=== PATIENT | male | born 1980 | race Caucasian/White ===

== ENCOUNTER 2016-10-16 23:01 | Observation (INO) | payer BC ==
[2016-10-16] MEDS ORDERED: Diphtheria,Pertussis(Acell),Tetanus Vaccine 0.5 ML Syringe IM ONE (23:13)
--- NOTE | 2016-10-16 23:19 | EDM.PDOC ---
ED HPI GENERAL MEDICAL PROBLEM - General Chief Complaint: Drug or Alcohol Abuse Stated Complaint: INTOXICATED Time Seen by Provider: 10/16/16 23:08 - History of Present Illness INITIAL COMMENTS - FREE TEXT/NARRATIVE: HISTORY AND PHYSICAL: History of present illness: Patient a 36-year-old white male with a history of long-standing alcohol abuse and is reportedly been drinking heavily for the past several weeks he was at home with parents intoxicated per their history had a fall from standing position hitting his head he is brought here via them in private vehicle arrival patient is abrasion contusion to his forehead he is nonverbal he will respond to physical stimuli and does open his eyes spontaneously he is moving all extremities he was immediately placed in a cervical collar in place in a bed IV O2 monitor was initiated Review of systems: As per history of present illness and below otherwise all systems reviewed and negative. Past medical history: As per history of present illness and as reviewed below otherwise noncontributory. Surgical history: As per history of present illness and as reviewed below otherwise noncontributory. Social history: No reported history of drug or alcohol abuse. Family history: As per history of present illness and as reviewed below otherwise noncontributory. Physical exam: HEENT: Abrasion with forehead hematoma noted, normocephalic, pupils reactive, negative for conjunctival pallor or scleral icterus, mucous membranes moist, throat clear, neck supple, nontender, trachea midline. Lungs: Clear to auscultation, breath sounds equal bilaterally, chest nontender. Heart: S1S2, regular, negative for clicks, rubs, or JVD. Abdomen: Soft, nondistended, nontender. Negative for masses or hepatosplenomegaly. Negative for costovertebral tenderness. Pelvis: Stable nontender. Genitourinary: Deferred. Rectal: Deferred. Extremities: Atraumatic, negative for cords or calf pain. Neurovascular unremarkable. Neuro: Somnolent moves all extremities inconsistently follows commands markedly limited nonfocal exam Diagnostics: CBC CMP PT/INR troponin EKG chest x-ray CT brain CT C-spine UA urine drug screen EtOH Therapeutics: IV O2 monitor tetanus updated Impression: #1 observation status post fall #2 ethanol abuse with acute intoxication #3 closed head injury #4 abrasion contusion with hematoma right forehead Definitive disposition and diagnosis as appropriate pending reevaluation and review of above. - Related Data Allergies Allergy/AdvReac Type Severity Reaction Status Date / Time No Known Allergies Allergy Verified 10/16/16 23:46 Home Meds: Home Meds . [Unable to Verify Home Med List] 10/16/16 [History] Past Medical History - Past Health History Medical/Surgical History: Denies Medical/Surgical History Social & Family History - Tobacco Use Smoking Status *Q: Current Status Unknown - Recreational Drug Use Recreational Drug Use: No ED ROS GENERAL - Review of Systems Review Of Systems: ROS reveals no pertinent complaints other than HPI. ED EXAM, GENERAL - Physical Exam Exam: See Below (See dictation) Course - Vital Signs Last Recorded V/S: Last Vital Signs Temp 36.3 C 10/16/16 23:11 Pulse 108 H 10/16/16 23:11 Resp 20 10/16/16 23:11 BP Pulse Ox 91 L 10/16/16 23:11 - Orders/Labs/Meds Orders: Active Orders 24 hr Category Date Time Status Admission Status [Patient Status] [ADT] Stat ADT 10/17/16 00:10 Active Cardiac Monitoring [RC] . DIRECTED Care 10/16/16 23:10 Active EKG Documentation Completion [RC] STAT Care 10/16/16 23:09 Active Vaccines to be Administered [RC] PER UNIT ROUTINE Care 10/16/16 23:13 Active Cervical Spine wo Cont [CT] Stat Exams 10/16/16 23:11 Taken Head wo Cont [CT] Stat Exams 10/16/16 23:12 Taken Sodium Chloride 0.9% [Normal Saline] 1,000 ml Med 10/16/16 23:15 Active IV ASDIRECTED Medication Orders Sodium Chloride (Normal Saline) 1,000 mls @ 125 mls/hr IV ASDIRECTED KAVYA Labs: Laboratory Tests 10/16/16 10/16/16 10/16/16 Range/Units 23:18 23:18 23:18 WBC 2.25 L (4.0-11.0) K/uL RBC 4.72 (4.50-5.90) M/uL Hgb 15.3 (13.0-17.0) g/dL Hct 42.3 (38.0-50.0) % MCV 89.6 (80.0-98.0) fL MCH 32.4 H (27.0-32.0) pg MCHC 36.2 (31.0-37.0) g/dL RDW Std Deviation 40.3 (28.0-62.0) fl RDW Coeff of Mj 13 (11.0-15.0) % Plt Count 62 L (150-400) K/uL MPV 9.10 (7.40-12.00) fL Neut % (Auto) 49.4 (48.0-80.0) % Lymph % (Auto) 34.2 (16.0-40.0) % Nolan % (Auto) 14.7 (0.0-15.0) % Eos % (Auto) 1.3 (0.0-7.0) % Baso % (Auto) 0.4 (0.0-1.5) % Neut # (Auto) 1.1 L (1.4-5.7) K/uL Lymph # (Auto) 0.8 (0.6-2.4) K/uL Nolan # (Auto) 0.3 (0.0-0.8) K/uL Eos # (Auto) 0.0 (0.0-0.7) K/uL Baso # (Auto) 0.0 (0.0-0.1) K/uL Nucleated RBC % 0.0 /100WBC Nucleated RBCs # 0 K/uL INR 0.93 (0.86-1.11) Sodium 140 (136-146) mmol/L Potassium 4.0 (3.5-5.1) mmol/L Chloride 100 (98-110) mmol/L Carbon Dioxide 24 (21-31) mmol/L BUN 10 (6.0-23.0) mg/dL Creatinine 0.8 (0.6-1.5) mg/dL Est Cr Clr Drug Dosing 138.57 mL/min Estimated GFR (MDRD) > 60.0 ml/min Glucose 133 H (60-110) mg/dL Calcium 9.0 (8.8-10.8) mg/dL Total Bilirubin 0.9 (0.1-1.5) mg/dL AST 318 H (5-40) IU/L ALT 284 H (8-54) IU/L Alkaline Phosphatase 93 (40-150) Troponin I (0.0-0.29) NG/ML Total Protein 8.0 (6.0-8.0) g/dL Albumin 4.9 (3.5-5.0) g/dL Globulin 3.1 (2.0-3.5) g/dL Albumin/Globulin Ratio 1.6 (1.3-2.8) Urine Opiates Screen (NEGATIVE) Ur Oxycodone Screen (NEGATIVE) Urine Methadone Screen (NEGATIVE) Ur Barbiturates Screen (NEGATIVE) Ur Phencyclidine Scrn (NEGATIVE) Ur Amphetamine Screen (NEGATIVE) U Methamphetamines Scrn (NEGATIVE) U Benzodiazepines Scrn (NEGATIVE) U Cocaine Metab Screen (NEGATIVE) U Marijuana (THC) Screen (NEGATIVE) Ethyl Alcohol 499.6 mg/dL 10/16/16 10/17/16 Range/Units 23:18 00:15 WBC (4.0-11.0) K/uL RBC (4.50-5.90) M/uL Hgb (13.0-17.0) g/dL Hct (38.0-50.0) % MCV (80.0-98.0) fL MCH (27.0-32.0) pg MCHC (31.0-37.0) g/dL RDW Std Deviation (28.0-62.0) fl RDW Coeff of Mj (11.0-15.0) % Plt Count (150-400) K/uL MPV (7.40-12.00) fL Neut % (Auto) (48.0-80.0) % Lymph % (Auto) (16.0-40.0) % Nolan % (Auto) (0.0-15.0) % Eos % (Auto) (0.0-7.0) % Baso % (Auto) (0.0-1.5) % Neut # (Auto) (1.4-5.7) K/uL Lymph # (Auto) (0.6-2.4) K/uL Nolan # (Auto) (0.0-0.8) K/uL Eos # (Auto) (0.0-0.7) K/uL Baso # (Auto) (0.0-0.1) K/uL Nucleated RBC % /100WBC Nucleated RBCs # K/uL INR (0.86-1.11) Sodium (136-146) mmol/L Potassium (3.5-5.1) mmol/L Chloride (98-110) mmol/L Carbon Dioxide (21-31) mmol/L BUN (6.0-23.0) mg/dL Creatinine (0.6-1.5) mg/dL Est Cr Clr Drug Dosing mL/min Estimated GFR (MDRD) ml/min Glucose (60-110) mg/dL Calcium (8.8-10.8) mg/dL Total Bilirubin (0.1-1.5) mg/dL AST (5-40) IU/L ALT (8-54) IU/L Alkaline Phosphatase (40-150) Troponin I < 0.10 (0.0-0.29) NG/ML Total Protein (6.0-8.0) g/dL Albumin (3.5-5.0) g/dL Globulin (2.0-3.5) g/dL Albumin/Globulin Ratio (1.3-2.8) Urine Opiates Screen NEGATIVE (NEGATIVE) Ur Oxycodone Screen NEGATIVE (NEGATIVE) Urine Methadone Screen NEGATIVE (NEGATIVE) Ur Barbiturates Screen NEGATIVE (NEGATIVE) Ur Phencyclidine Scrn NEGATIVE (NEGATIVE) Ur Amphetamine Screen NEGATIVE (NEGATIVE) U Methamphetamines Scrn NEGATIVE (NEGATIVE) U Benzodiazepines Scrn NEGATIVE (NEGATIVE) U Cocaine Metab Screen NEGATIVE (NEGATIVE) U Marijuana (THC) Screen NEGATIVE (NEGATIVE) Ethyl Alcohol mg/dL Meds: Medications Generic Name Dose Route Start Last Admin Trade Name Freq PRN Reason Stop Dose Admin Sodium Chloride 1,000 mls @ 125 mls/hr 10/16/16 23:15 Normal Saline IV ASDIRECTED KAVYA Discontinued Medications Generic Name Dose Route Start Last Admin Trade Name Freq PRN Reason Stop Dose Admin Diphtheria/Tetanus/Acell Pertussis 0.5 ml 10/16/16 23:13 Adacel IM 10/16/16 23:14 .ONCE ONE Departure - Departure Time of Disposition: 00:52 Disposition: Refer to Observation Condition: Serious Clinical Impression: Alcohol abuse, Head trauma, Fall - Discharge Information Forms: ED Department Discharge - My Orders Last 24 Hours: My Active Orders 10/16/16 23:09 EKG Documentation Completion [RC] STAT 10/16/16 23:10 Cardiac Monitoring [RC] . DIRECTED 10/16/16 23:11 Cervical Spine wo Cont [CT] Stat 10/16/16 23:12 Head wo Cont [CT] Stat 10/16/16 23:13 Vaccines to be Administered [RC] PER UNIT ROUTINE 10/16/16 23:15 Sodium Chloride 0.9% [Normal Saline] 1,000 ml IV ASDIRECTED 10/17/16 00:10 Admission Status [Patient Status] [ADT] Stat - Assessment/Plan Last 24 Hours: My Active Orders 10/16/16 23:09 EKG Documentation Completion [RC] STAT 10/16/16 23:10 Cardiac Monitoring [RC] . DIRECTED 10/16/16 23:11 Cervical Spine wo Cont [CT] Stat 10/16/16 23:12 Head wo Cont [CT] Stat 10/16/16 23:13 Vaccines to be Administered [RC] PER UNIT ROUTINE 10/16/16 23:15 Sodium Chloride 0.9% [Normal Saline] 1,000 ml IV ASDIRECTED 10/17/16 00:10 Admission Status [Patient Status] [ADT] Stat
[2016-10-16 23:48] LABS: CHLORIDE,CL 100 mmol/L (98-110); SODIUM,NA 140 mmol/L (136-146)
[2016-10-16] MEDS: Sodium Chloride 0.9% 1,000 ML IV SCH (23:55)
[2016-10-17] MEDS ORDERED: Morphine 10 MG/ML Syringe ONE (02:04)
[2016-10-17] MEDS ORDERED: Thiamine 100 MG in Sodium Chloride 0.9% 50 ML IV STA ×2 (03:34→04:23)
[2016-10-17] MEDS ORDERED: Pantoprazole 40 MG in Sodium Chloride 0.9% 10 ML IVPUSH SCH (04:15)
[2016-10-17] MEDS: MVI, Adult with Vitamin K 10 ML, Thiamine 100 MG, Folic Acid 1 MG in Sodium Chloride 0.... IV SCH ×4 (04:30)
[2016-10-17 05:14] LABS: CHLORIDE,CL 103 mmol/L (98-110); SODIUM,NA 142 mmol/L (136-146)
--- NOTE | 2016-10-17 06:48 | PCM.HP ---
H&P History of Present Illness - General Admit Problem/Dx: Admission Diagnosis/Problem Admission Diagnosis/Problem "Fall on same level from slipping, tripping or stumbling " - Related Data Allergies/Adverse Reactions: Allergies Allergy/AdvReac Type Severity Reaction Status Date / Time No Known Allergies Allergy Verified 10/16/16 23:46 Home Medications: Home Meds . 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; he also had knee surgery) Other Musculoskeletal Surgeries/Procedures:: hip surgery Social & Family History - Family History Family Medical History: Noncontributory - Tobacco Use Smoking Status *Q: Never Smoker Second Hand Smoke Exposure: No - Caffeine Use Caffeine Use: Reports: Energy Drinks Caffeine Use Comment: "once in a while" - Alcohol Use Days Per Week of Alcohol Use: 7 Number of Drinks Per Day: 5 Total Drinks Per Week: 35 - Recreational Drug Use Recreational Drug Use: No Exam - Vital Signs Vital Signs: Last Vital Signs Temp 97.8 F 10/17/16 02:00 Pulse 102 H 10/17/16 02:00 Resp 20 10/17/16 02:00 BP 118/72 10/17/16 02:00 Pulse Ox 99 10/17/16 02:00 Weight: 78.5 kg - Patient Data Lab Results Last 24 hrs: Laboratory Results - last 24 hr 10/17/16 10/17/16 10/17/16 Range/Units 00:15 04:38 04:38 WBC 3.22 L (4.0-11.0) K/uL RBC 4.22 L (4.50-5.90) M/uL Hgb 13.6 (13.0-17.0) g/dL Hct 37.9 L (38.0-50.0) % MCV 89.8 (80.0-98.0) fL MCH 32.2 H (27.0-32.0) pg MCHC 35.9 (31.0-37.0) g/dL RDW Std Deviation 40.6 (28.0-62.0) fl RDW Coeff of Mj 13 (11.0-15.0) % Plt Count 54 L (150-400) K/uL MPV 8.90 (7.40-12.00) fL Neutrophils % (Manual) 59 (48.0-80.0) % Band Neutrophils % 1 % Lymphocytes % (Manual) 36 (16.0-40.0) % Monocytes % (Manual) 3 (0.0-15.0) % Eosinophils % (Manual) 1 (0.0-7.0) % Nucleated RBC % 0.0 /100WBC Absolute Seg Neuts 1.9 Band Neutrophils # 0 Lymphocytes # (Manual) 1.2 Monocytes # (Manual) 0.1 Eosinophils # (Manual) 0 Sodium 142 (136-146) mmol/L Potassium 4.0 (3.5-5.1) mmol/L Chloride 103 (98-110) mmol/L Carbon Dioxide 22 (21-31) mmol/L BUN 10 (6.0-23.0) mg/dL Creatinine 0.8 (0.6-1.5) mg/dL Est Cr Clr Drug Dosing 138.01 mL/min Estimated GFR (MDRD) > 60.0 ml/min Glucose 105 (60-110) mg/dL Calcium 8.1 L (8.8-10.8) mg/dL Magnesium 1.6 (1.5-2.3) mEq/L Total Bilirubin 0.9 (0.1-1.5) mg/dL AST 298 H (5-40) IU/L ALT 253 H (8-54) IU/L Alkaline Phosphatase 88 (40-150) Ammonia (14-68) UG/DL Total Protein 7.0 (6.0-8.0) g/dL Albumin 4.5 (3.5-5.0) g/dL Globulin 2.5 (2.0-3.5) g/dL Albumin/Globulin Ratio 1.8 (1.3-2.8) Urine Opiates Screen NEGATIVE (NEGATIVE) Ur Oxycodone Screen NEGATIVE (NEGATIVE) Urine Methadone Screen NEGATIVE (NEGATIVE) Ur Barbiturates Screen NEGATIVE (NEGATIVE) Ur Phencyclidine Scrn NEGATIVE (NEGATIVE) Ur Amphetamine Screen NEGATIVE (NEGATIVE) U Methamphetamines Scrn NEGATIVE (NEGATIVE) U Benzodiazepines Scrn NEGATIVE (NEGATIVE) U Cocaine Metab Screen NEGATIVE (NEGATIVE) U Marijuana (THC) Screen NEGATIVE (NEGATIVE) 10/17/16 Range/Units 04:38 WBC (4.0-11.0) K/uL RBC (4.50-5.90) M/uL Hgb (13.0-17.0) g/dL Hct (38.0-50.0) % MCV (80.0-98.0) fL MCH (27.0-32.0) pg MCHC (31.0-37.0) g/dL RDW Std Deviation (28.0-62.0) fl RDW Coeff of Mj (11.0-15.0) % Plt Count (150-400) K/uL MPV (7.40-12.00) fL Neutrophils % (Manual) (48.0-80.0) % Band Neutrophils % % Lymphocytes % (Manual) (16.0-40.0) % Monocytes % (Manual) (0.0-15.0) % Eosinophils % (Manual) (0.0-7.0) % Nucleated RBC % /100WBC Absolute Seg Neuts Band Neutrophils # Lymphocytes # (Manual) Monocytes # (Manual) Eosinophils # (Manual) Sodium (136-146) mmol/L Potassium (3.5-5.1) mmol/L Chloride (98-110) mmol/L Carbon Dioxide (21-31) mmol/L BUN (6.0-23.0) mg/dL Creatinine (0.6-1.5) mg/dL Est Cr Clr Drug Dosing mL/min Estimated GFR (MDRD) ml/min Glucose (60-110) mg/dL Calcium (8.8-10.8) mg/dL Magnesium (1.5-2.3) mEq/L Total Bilirubin (0.1-1.5) mg/dL AST (5-40) IU/L ALT (8-54) IU/L Alkaline Phosphatase (40-150) Ammonia 48 (14-68) UG/DL Total Protein (6.0-8.0) g/dL Albumin (3.5-5.0) g/dL Globulin (2.0-3.5) g/dL Albumin/Globulin Ratio (1.3-2.8) Urine Opiates Screen (NEGATIVE) Ur Oxycodone Screen (NEGATIVE) Urine Methadone Screen (NEGATIVE) Ur Barbiturates Screen (NEGATIVE) Ur Phencyclidine Scrn (NEGATIVE) Ur Amphetamine Screen (NEGATIVE) U Methamphetamines Scrn (NEGATIVE) U Benzodiazepines Scrn (NEGATIVE) U Cocaine Metab Screen (NEGATIVE) U Marijuana (THC) Screen (NEGATIVE) Result Diagrams: 10/17/16 04:38 10/17/16 04:38 *Q Meaningful Use (ADM) - VTE *Q VTE Criteria *Q: - Stroke *Q Stroke Criteria *Q: - AMI *Q AMI Criteria *Q: Orders Last 24hrs: Active Orders 24 hr Category Date Time Status Admission Status [Patient Status] [ADT] Routine ADT 10/17/16 00:30 Active Notify Provider Consults [RC] ASDIRECTED Care 10/17/16 04:33 Active Consult to Physician [CONS] Routine Cons 10/17/16 04:31 Active Regular Diet [DIET] Diet 10/17/16 Breakfast Active MVI, Adult with Vitamin K [Infuvite Adult] 10 ml Med 10/17/16 03:45 Active Thiamine [Vitamin B-1] 100 mg Folic Acid 1 mg Sodium Chloride 0.9% [Normal Saline] 1,000 ml IV Q24H Pantoprazole [ProTONIX IV] 40 mg Med 10/17/16 04:15 Active Sodium Chloride 0.9% [Normal Saline] 10 ml IVPUSH Q24H Medication Orders Sodium Chloride (Normal Saline) 1,000 mls @ 125 mls/hr IV ASDIRECTED [facility] Last Admin: 10/16/16 23:55 Dose: 125 mls/hr Multivitamins/Minerals 10 ml/Thiamine HCl 100 mg/ Folic Acid 1 mg/ Sodium Chloride 1,011.2 mls @ 125 mls/hr IV Q24H [facility] Last Admin: 10/17/16 04:30 Dose: 125 mls/hr Pantoprazole Sodium 40 mg/ (Sodium Chloride) 10 mls @ 300 mls/hr IVPUSH Q24H [facility] Last Admin: 10/17/16 04:43 Dose: 300 mls/hr
--- NOTE | 2016-10-17 06:56 | PCM.CONS ---
H&P History of Present Illness - General Date of Service: 10/17/16 Admit Problem/Dx: Admission Diagnosis/Problem Admission Diagnosis/Problem "Fall on same level from slipping, tripping or stumbling " - History of Present Illness Initial Comments - Free Text/Narative: He was seen in the ED for a ground level fall while intoxicated. He states that he mainly is a binge drinker and that before this current alcohol binge, he had not had any alcohol for over one year. - Related Data Allergies/Adverse Reactions: Allergies Allergy/AdvReac Type Severity Reaction Status Date / Time No Known Allergies Allergy Verified 10/16/16 23:46 Home Medications: Home Meds . [Unable to Verify Home Med List] 10/16/16 [History] Past Medical History - Past Health History Medical/Surgical History: Denies Medical/Surgical History HEENT History: Reports: None Cardiovascular History: Denies: Afib, Arrhythmia, CAD, Cardiomyopathy, Heart Failure, Heart Murmur, Hypertension, [place], Pacemaker Respiratory History: Denies: Asthma, COPD, Cystic Fibrosis, PE, Pulmonary Fibrosis Gastrointestinal History: Denies: Cirrhosis Genitourinary History: Denies: Chronic Renal Insuffiency Musculoskeletal History: Reports: None Psychiatric History: Reports: Depression. Denies: Dementia, Psych Hospitalization(s), Psychosis, Schizophrenia Endocrine/Metabolic History: Denies: Diabetes, Type I, Diabetes, Type II, Hyperparathyroidism Hematologic History: Denies: Anticoagulation Therapy, Bleeding Disorder Oncologic (Cancer) History: Reports: None - Infectious Disease History Infectious Disease History: Reports: Chicken Pox - Past Surgical History Other Musculoskeletal Surgeries/Procedures:: hip surgery Social & Family History - Family History Family Medical History: Noncontributory - Tobacco Use Smoking Status *Q: Never Smoker Second Hand Smoke Exposure: No - Caffeine Use Caffeine Use: Reports: Energy Drinks Caffeine Use Comment: "once in a while" - Alcohol Use Alcohol Use Comment: He told me that he has not had a drink for over one year and that he occasionally "binge" drinks. - Recreational Drug Use Recreational Drug Use: No H&P Review of Systems - Review of Systems: Review Of Systems: See Below General: Denies: Fever, Chills Pulmonary: Denies: Shortness of Breath, Wheezing Cardiovascular: Denies: Chest Pain, Palpitations Gastrointestinal: Reports: Abdominal Pain (epigastric). Denies: Black Stool, Bloody Stool, Melena, Nausea Genitourinary: Denies: Dysuria, Frequency Musculoskeletal: Denies: Neck Pain (swelling and abrasion mid forehead; denies broken teeth; denies LOC) Exam - Exam Exam: See Below - Vital Signs Vital Signs: Last Vital Signs Temp 97.8 F 10/17/16 02:00 Pulse 102 H 10/17/16 02:00 Resp 20 10/17/16 02:00 BP 118/72 10/17/16 02:00 Pulse Ox 99 10/17/16 02:00 Weight: 78.5 kg - Exam General: Alert, Oriented, Cooperative, Other (marked swelling over mid forehead with abrasion) HEENT: EOMI Neck: Supple Lungs: Clear to Auscultation, Normal Respiratory Effort Cardiovascular: Regular Rate, Regular Rhythm Abdomen: Soft, Tenderness (mild epigastric tenderness) (Male) Exam: Deferred Extremities: No: Cyanosis, Edema Neurological: Cranial Nerves Intact Neuro Extensive - Motor, Sensory, Reflexes: No: Facial palsy (L), Facial Palsy ( R), Hemeplagia (R), Hemeplagia (L) - Patient Data Lab Results Last 24 hrs: Laboratory Results - last 24 hr 10/17/16 10/17/16 10/17/16 Range/Units 00:15 04:38 04:38 WBC 3.22 L (4.0-11.0) K/uL RBC 4.22 L (4.50-5.90) M/uL Hgb 13.6 (13.0-17.0) g/dL Hct 37.9 L (38.0-50.0) % MCV 89.8 (80.0-98.0) fL MCH 32.2 H (27.0-32.0) pg MCHC 35.9 (31.0-37.0) g/dL RDW Std Deviation 40.6 (28.0-62.0) fl RDW Coeff of Mj 13 (11.0-15.0) % Plt Count 54 L (150-400) K/uL MPV 8.90 (7.40-12.00) fL Neutrophils % (Manual) 59 (48.0-80.0) % Band Neutrophils % 1 % Lymphocytes % (Manual) 36 (16.0-40.0) % Monocytes % (Manual) 3 (0.0-15.0) % Eosinophils % (Manual) 1 (0.0-7.0) % Nucleated RBC % 0.0 /100WBC Absolute Seg Neuts 1.9 Band Neutrophils # 0 Lymphocytes # (Manual) 1.2 Monocytes # (Manual) 0.1 Eosinophils # (Manual) 0 Sodium 142 (136-146) mmol/L Potassium 4.0 (3.5-5.1) mmol/L Chloride 103 (98-110) mmol/L Carbon Dioxide 22 (21-31) mmol/L BUN 10 (6.0-23.0) mg/dL Creatinine 0.8 (0.6-1.5) mg/dL Est Cr Clr Drug Dosing 138.01 mL/min Estimated GFR (MDRD) > 60.0 ml/min Glucose 105 (60-110) mg/dL Calcium 8.1 L (8.8-10.8) mg/dL Magnesium 1.6 (1.5-2.3) mEq/L Total Bilirubin 0.9 (0.1-1.5) mg/dL AST 298 H (5-40) IU/L ALT 253 H (8-54) IU/L Alkaline Phosphatase 88 (40-150) Ammonia (14-68) UG/DL Total Protein 7.0 (6.0-8.0) g/dL Albumin 4.5 (3.5-5.0) g/dL Globulin 2.5 (2.0-3.5) g/dL Albumin/Globulin Ratio 1.8 (1.3-2.8) Urine Opiates Screen NEGATIVE (NEGATIVE) Ur Oxycodone Screen NEGATIVE (NEGATIVE) Urine Methadone Screen NEGATIVE (NEGATIVE) Ur Barbiturates Screen NEGATIVE (NEGATIVE) Ur Phencyclidine Scrn NEGATIVE (NEGATIVE) Ur Amphetamine Screen NEGATIVE (NEGATIVE) U Methamphetamines Scrn NEGATIVE (NEGATIVE) U Benzodiazepines Scrn NEGATIVE (NEGATIVE) U Cocaine Metab Screen NEGATIVE (NEGATIVE) U Marijuana (THC) Screen NEGATIVE (NEGATIVE) 10/17/16 Range/Units 04:38 WBC (4.0-11.0) K/uL RBC (4.50-5.90) M/uL Hgb (13.0-17.0) g/dL Hct (38.0-50.0) % MCV (80.0-98.0) fL MCH (27.0-32.0) pg MCHC (31.0-37.0) g/dL RDW Std Deviation (28.0-62.0) fl RDW Coeff of Mj (11.0-15.0) % Plt Count (150-400) K/uL MPV (7.40-12.00) fL Neutrophils % (Manual) (48.0-80.0) % Band Neutrophils % % Lymphocytes % (Manual) (16.0-40.0) % Monocytes % (Manual) (0.0-15.0) % Eosinophils % (Manual) (0.0-7.0) % Nucleated RBC % /100WBC Absolute Seg Neuts Band Neutrophils # Lymphocytes # (Manual) Monocytes # (Manual) Eosinophils # (Manual) Sodium (136-146) mmol/L Potassium (3.5-5.1) mmol/L Chloride (98-110) mmol/L Carbon Dioxide (21-31) mmol/L BUN (6.0-23.0) mg/dL Creatinine (0.6-1.5) mg/dL Est Cr Clr Drug Dosing mL/min Estimated GFR (MDRD) ml/min Glucose (60-110) mg/dL Calcium (8.8-10.8) mg/dL Magnesium (1.5-2.3) mEq/L Total Bilirubin (0.1-1.5) mg/dL AST (5-40) IU/L ALT (8-54) IU/L Alkaline Phosphatase (40-150) Ammonia 48 (14-68) UG/DL Total Protein (6.0-8.0) g/dL Albumin (3.5-5.0) g/dL Globulin (2.0-3.5) g/dL Albumin/Globulin Ratio (1.3-2.8) Urine Opiates Screen (NEGATIVE) Ur Oxycodone Screen (NEGATIVE) Urine Methadone Screen (NEGATIVE) Ur Barbiturates Screen (NEGATIVE) Ur Phencyclidine Scrn (NEGATIVE) Ur Amphetamine Screen (NEGATIVE) U Methamphetamines Scrn (NEGATIVE) U Benzodiazepines Scrn (NEGATIVE) U Cocaine Metab Screen (NEGATIVE) U Marijuana (THC) Screen (NEGATIVE) Result Diagrams: 10/17/16 04:38 10/17/16 04:38 Consult PN Assessment/Plan Procedures: Procedures BX BREAST 1ST LESION US IMAG (07/28/15) EMERGENCY DEPT VISIT (08/10/15) (1) Elevated liver enzymes SNOMED Code(s): 359356571, 433726028 Code(s): R74.8 - ABNORMAL LEVELS OF OTHER SERUM ENZYMES Current Visit: Yes (2) Epigastric pain SNOMED Code(s): 68128498 Code(s): R10.13 - EPIGASTRIC PAIN Current Visit: Yes (3) Alcohol abuse SNOMED Code(s): 53816229 Code(s): F10.10 - ALCOHOL ABUSE, UNCOMPLICATED Current Visit: Yes (4) Fall SNOMED Code(s): 4609138, 072334350 Code(s): W19.XXXA - UNSPECIFIED FALL, INITIAL ENCOUNTER Current Visit: Yes Problem List Initiated/Reviewed/Updated: Yes My Orders last 24 hours: My Active Orders 10/17/16 03:45 MVI, Adult with Vitamin K [Infuvite Adult] 10 ml Thiamine [Vitamin B-1] 100 mg Folic Acid 1 mg Sodium Chloride 0.9% [Normal Saline] 1,000 ml IV Q24H 10/17/16 Breakfast Regular Diet [DIET] Plan: monitor for alcohol withdrawl banana bag already ordered abdominal u/s recheck LFT tomorrow. MD Nadir
[2016-10-17] MEDS ORDERED: Ondansetron 4 MG Tab.DIS PO PRN (06:58)
[2016-10-17] MEDS ORDERED: Temazepam 15 MG Cap PO PRN (06:58)
--- NOTE | 2016-10-17 11:01 | CT ---
EXAM DATE: 10/17/16 PATIENT'S AGE: 36 Patient: GERALDO ZELAYA Facility: [place], [place] Site . Site : 1980 Study: CT Head WO CONT [id number]/27/2017 12:12:07 AM Ordering Physician: Paul Tolentino Final Report: INDICATIONS: Fall. TECHNIQUE: CT head without contrast. COMPARISON: None FINDINGS: No mass effect or midline shift. No hydrocephalus. No CT evidence of acute hemorrhage or infarction. No abnormal extra-axial fluid collection. Bone windows show no acute abnormality. Visualized paranasal sinuses and orbits are unremarkable. Soft tissue swelling right frontal scalp. IMPRESSION: No acute intracranial abnormality. Soft tissue swelling right frontal scalp. Dictated by Jacob Garcia MD @ 10/17/2016 12:30:23 AM Dictated by: Jacob Garcia MD @ 10/17/2016 00:30:38 (Electronic Signature) Report Signed by Proxy. [facility]ITAL[facility]as[facility]
--- NOTE | 2016-10-17 11:02 | CT ---
EXAM DATE: 10/17/16 PATIENT'S AGE: 36 Patient: GERALDO ZELAYA Facility: [place], [place] Site . Site : 1980 Study: CT Spine Cervical [id number]/27/2017 12:15:45 AM Ordering Physician: Paul Tolentino Final Report: INDICATIONS: Fall. TECHNIQUE: CT cervical spine without contrast. COMPARISON: None. FINDINGS: No acute fracture, malalignment or significant bony central canal compromise. No additional osseous abnormality. Paraspinal soft tissues and lung apices as imaged are unremarkable. IMPRESSION: No acute cervical spine fracture. Dictated by Jacob Garcia MD @ 10/17/2016 12:38:34 AM Dictated by: Jacob Garcia MD @ 10/17/2016 00:38:43 (Electronic Signature) Report Signed by Proxy. [facility]
--- NOTE | 2016-10-17 11:09 | US ---
EXAMINATION: Right upper quadrant ultrasound HISTORY: Elevated liver enzymes COMPARISON: None TECHNIQUE: Grayscale and color Doppler images obtained of the right upper quadrant. FINDINGS: The visualized pancreas appears normal. The liver is mildly increased in generalized echot exture. Cholelithiasis without pericholecystic fluid or gallbladder wall thickening. Common bile risa t measures 4 mm. Sonographic Fenton sign is negative. The right kidney measures 13.2 cm [id number] with a trace pyelocaliectasis. IMPRESSION: 1. Mild fatty infiltration of the liver. 2. Cholelithiasis without evidence of cholecystitis. 3. Trace right pyelocaliectasis.
--- NOTE | 2016-10-17 13:32 | HP ---
DATE OF : 1980 PRIMARY CARE PHYSICIAN: None PCP Consult was called at 3 a.m. in the morning and the patient was seen shortly after. CONCERNING QUESTION: Trauma admit. HISTORY OF PRESENT ILLNESS: The patient is a 36-year-old gentleman, who fell from standing height on his forehead and was admitted to the emergency room and note for alcohol level 499.6. At that alcohol level, the patient really cannot have a meaningful neural examination, so the patient was admitted for observation and Surgery was consulted for admission. The patient remarked that he knows everything that was happening. He did not blackout and he knows what he went through, and he is alert and oriented x3. PAST MEDICAL HISTORY: Significant for no diabetes, VA, CVA, or hypertension. The patient does have a long history of alcohol abuse. ALLERGIES: Please refer to nursing note for details. MEDICATIONS: Please refer to nursing note for details. FAMILY HISTORY: Noncontributory. PHYSICAL EXAMINATION: GENERAL: The patient had a very bulging forehead swelling, soft tissue swelling vs hematoma right at the forehead, and also the right eye is swollen shut, but able to see through when opened by hand. SKIN: Intact. NECK: Trachea is midline. LUNGS: Bilateral breath sounds and no subcutaneous crepitus. Lungs are clear to auscultation. PELVIS: Stable. HEART: Regular rate and rhythm. ABDOMEN: Soft. No surgical scar, pulsating midline abdominal structure. IMPRESSION: Fall from standing height and without blackout and we will admit until alcohol level come down and able to get a meaningful examination. Hospitalist was consulted for alcohol withdrawal maintenance treatment. We will review chart and plan has been discussed with the family member, the mother, and concurred to proceed as planned. ASSESSMENT: Trauma standing from height. PLAN: Admit, to wait until the alcohol level comes down, and supportive management and the patient is able to have clear liquid diet and also consult hospitalist for risks of alcohol withdrawal. As always, thank you for the kind referral. LAWRENCE MARION /[id number] LORIN
[2016-10-17] MEDS: Sodium Chloride 0.9% 1,000 ML IV SCH (15:52)
[2016-10-17] MEDS ORDERED: Ondansetron 4 MG/2 ML SDV IVPUSH PRN (20:01)
[2016-10-17] MEDS ORDERED: PANTOPRAZOLE IVPUSH SCH (21:00)
[2016-10-17] MEDS ORDERED: SODIUM CHLORIDE 0.9% IVPUSH SCH (21:00)
[2016-10-18] MEDS: MVI, Adult with Vitamin K 10 ML, Thiamine 100 MG, Folic Acid 1 MG in Sodium Chloride 0.... IV SCH ×4 (03:07)
[2016-10-18 05:29] LABS: CHLORIDE,CL 103 mmol/L (98-110); SODIUM,NA 136 mmol/L (136-146)
[2016-10-18] MEDS ORDERED: Magnesium Sulfate/Water 4 GM in Premix Bag 1 BAG IV ONE (07:53)
--- NOTE | 2016-10-18 09:13 | PCM.CONSN ---
<Polo Munroein - Last Filed: 10/18/16 09:10> - General Info Date of Service: 10/18/16 Admission Dx/Problem (Free Text): Admission Diagnosis/Problem Admission Diagnosis/Problem "Fall on same level from slipping, tripping or stumbling " Subjective Update: Feeling better this am and nausea has resolved. Feeling hungry. Did not sleep well. Wanting to know when he can go home. No chest pain, palp, sob, abd pain , having bowel movements and no pain with urination. He does not go to AA regularly or have a sponsor. He was 15 mo. sober. Mother is in room and is supportive. - Patient Data Vitals - most recent: Last Vital Signs Temp 36.7 C 10/18/16 04:00 Pulse 70 10/18/16 04:00 Resp 18 10/18/16 04:00 BP 122/66 10/18/16 04:00 Pulse Ox 92 L 10/18/16 04:00 Weight - most recent: 78.5 kg I&O - last 24 hours: Intake & Output 10/17/16 10/18/16 10/18/16 22:59 06:59 14:59 Intake Total 607 2493 Output Total 580 860 Balance 27 1633 Lab Results last 24 hrs: Laboratory Results - last 24 hr 10/18/16 10/18/16 10/18/16 Range/Units 04:40 04:40 04:40 WBC 3.06 L (4.0-11.0) K/uL RBC 3.68 L (4.50-5.90) M/uL Hgb 11.9 L (13.0-17.0) g/dL Hct 33.5 L (38.0-50.0) % MCV 91.0 (80.0-98.0) fL MCH 32.3 H (27.0-32.0) pg MCHC 35.5 (31.0-37.0) g/dL RDW Std Deviation 41.2 (28.0-62.0) fl RDW Coeff of Mj 13 (11.0-15.0) % Plt Count 40 L (150-400) K/uL MPV 9.50 (7.40-12.00) fL Neut % (Auto) 72.9 (48.0-80.0) % Lymph % (Auto) 14.7 L (16.0-40.0) % [place] % (Auto) 11.4 (0.0-15.0) % Eos % (Auto) 0.7 (0.0-7.0) % Baso % (Auto) 0.3 (0.0-1.5) % Neut # (Auto) 2.2 (1.4-5.7) K/uL Lymph # (Auto) 0.5 L (0.6-2.4) K/uL [place] # (Auto) 0.4 (0.0-0.8) K/uL Eos # (Auto) 0.0 (0.0-0.7) K/uL Baso # (Auto) 0.0 (0.0-0.1) K/uL Nucleated RBC % 0.9 /100WBC Nucleated RBCs # 0 K/uL INR 1.05 (0.86-1.11) Sodium 136 (136-146) mmol/L Potassium 4.1 (3.5-5.1) mmol/L Chloride 103 (98-110) mmol/L Carbon Dioxide 19 L (21-31) mmol/L BUN 14 (6.0-23.0) mg/dL Creatinine 0.7 (0.6-1.5) mg/dL Est Cr Clr Drug Dosing 157.72 mL/min Estimated GFR (MDRD) > 60.0 ml/min Glucose 96 (60-110) mg/dL Calcium 8.6 L (8.8-10.8) mg/dL Magnesium 1.3 L (1.5-2.3) mEq/L Total Bilirubin 1.9 H (0.1-1.5) mg/dL AST 152 H (5-40) IU/L ALT 160 H (8-54) IU/L Alkaline Phosphatase 62 (40-150) Total Protein 6.1 (6.0-8.0) g/dL Albumin 3.9 (3.5-5.0) g/dL Globulin 2.2 (2.0-3.5) g/dL Albumin/Globulin Ratio 1.8 (1.3-2.8) Med Orders - Current: Current Medications Sodium Chloride (Normal Saline) 1,000 mls @ 75 mls/hr IV ASDIRECTED [facility] Last Admin: 10/17/16 15:52 Dose: 75 mls/hr Multivitamins/Minerals 10 ml/Thiamine HCl 100 mg/ Folic Acid 1 mg/ Sodium Chloride 1,011.2 mls @ 125 mls/hr IV Q24H [facility] Last Admin: 10/18/16 03:07 Dose: 125 mls/hr Pantoprazole Sodium 30 mg/ (Sodium Chloride) 10 mls @ 300 mls/hr IVPUSH Q24H [facility] Last Admin: 10/17/16 22:25 Dose: 300 mls/hr Magnesium Sulfate 4 gm/ Premix 100 mls @ 50 mls/hr IV ONETIME ONE Stop: 10/18/16 09:52 Last Admin: 10/18/16 09:02 Dose: 50 mls/hr Ondansetron HCl (Zofran) 4 mg IVPUSH Q8H PRN PRN Reason: Nausea/Vomiting Last Admin: 10/17/16 22:24 Dose: 4 mg Temazepam (Restoril) 15 mg PO BEDTIME PRN PRN Reason: Sleep Discontinued Medications Diphtheria/Tetanus/Acell Pertussis (Adacel) 0.5 ml IM .ONCE ONE Stop: 10/16/16 23:14 Last Admin: 10/17/16 01:30 Dose: 0.5 ml Thiamine HCl 100 mg/ Sodium (Chloride) 51 mls @ 10 mls/min IV ONETIME STA Stop: 10/17/16 03:39 Last Admin: 10/17/16 04:34 Dose: Not Given Pantoprazole Sodium 40 mg/ (Sodium Chloride) 10 mls @ 300 mls/hr IVPUSH Q24H [facility] Last Admin: 10/17/16 04:43 Dose: 300 mls/hr Thiamine HCl 100 mg/ Sodium (Chloride) 51 mls @ 200 mls/hr IV ONETIME STA Stop: 10/17/16 04:38 Last Admin: 10/17/16 04:28 Dose: 200 mls/hr Morphine Sulfate (Morphine) Confirm Administered Dose 20 mg .ROUTE .STK-MED ONE Stop: 10/17/16 02:05 Last Admin: 10/17/16 03:58 Dose: Not Given Ondansetron HCl (Zofran Odt) 4 mg PO Q4H PRN PRN Reason: nausea, able to take PO Last Admin: 10/17/16 17:53 Dose: 4 mg Consult PN Assessment/Plan Procedures: Procedures BX BREAST 1ST LESION US IMAG (07/28/15) EMERGENCY DEPT VISIT (08/10/15) My Orders last 24 hours: My Active Orders 10/18/16 07:53 Magnesium Sulfate/Water [Magnesium Sulfate 4 GM in Water 100 ML] 4 gm Premix Bag 1 bag IV ONETIME <JoselitoTamir montague - Last Filed: 10/18/16 16:24> - Patient Data Vitals - most recent: Last Vital Signs Temp 98.7 F 10/18/16 08:00 Pulse 62 10/18/16 08:00 Resp 20 10/18/16 08:00 BP 135/82 10/18/16 08:00 Pulse Ox 94 L 10/18/16 08:00 I&O - last 24 hours: Intake & Output 10/17/16 10/18/16 10/18/16 22:59 06:59 14:59 Intake Total 607 2493 Output Total 580 860 Balance 27 1633 Lab Results last 24 hrs: Laboratory Results - last 24 hr 10/18/16 10/18/16 10/18/16 Range/Units 04:40 04:40 04:40 WBC 3.06 L (4.0-11.0) K/uL RBC 3.68 L (4.50-5.90) M/uL Hgb 11.9 L (13.0-17.0) g/dL Hct 33.5 L (38.0-50.0) % MCV 91.0 (80.0-98.0) fL MCH 32.3 H (27.0-32.0) pg MCHC 35.5 (31.0-37.0) g/dL RDW Std Deviation 41.2 (28.0-62.0) fl RDW Coeff of Mj 13 (11.0-15.0) % Plt Count 40 L (150-400) K/uL MPV 9.50 (7.40-12.00) fL Neut % (Auto) 72.9 (48.0-80.0) % Lymph % (Auto) 14.7 L (16.0-40.0) % [place] % (Auto) 11.4 (0.0-15.0) % Eos % (Auto) 0.7 (0.0-7.0) % Baso % (Auto) 0.3 (0.0-1.5) % Neut # (Auto) 2.2 (1.4-5.7) K/uL Lymph # (Auto) 0.5 L (0.6-2.4) K/uL [place] # (Auto) 0.4 (0.0-0.8) K/uL Eos # (Auto) 0.0 (0.0-0.7) K/uL Baso # (Auto) 0.0 (0.0-0.1) K/uL Nucleated RBC % 0.9 /100WBC Nucleated RBCs # 0 K/uL INR 1.05 (0.86-1.11) Sodium 136 (136-146) mmol/L Potassium 4.1 (3.5-5.1) mmol/L Chloride 103 (98-110) mmol/L Carbon Dioxide 19 L (21-31) mmol/L BUN 14 (6.0-23.0) mg/dL Creatinine 0.7 (0.6-1.5) mg/dL Est Cr Clr Drug Dosing 157.72 mL/min Estimated GFR (MDRD) > 60.0 ml/min Glucose 96 (60-110) mg/dL Calcium 8.6 L (8.8-10.8) mg/dL Magnesium 1.3 L (1.5-2.3) mEq/L Total Bilirubin 1.9 H (0.1-1.5) mg/dL AST 152 H (5-40) IU/L ALT 160 H (8-54) IU/L Alkaline Phosphatase 62 (40-150) Total Protein 6.1 (6.0-8.0) g/dL Albumin 3.9 (3.5-5.0) g/dL Globulin 2.2 (2.0-3.5) g/dL Albumin/Globulin Ratio 1.8 (1.3-2.8) Med Orders - Current: Current Medications Sodium Chloride (Normal Saline) 1,000 mls @ 75 mls/hr IV ASDIRECTED [facility] Last Admin: 10/17/16 15:52 Dose: 75 mls/hr Multivitamins/Minerals 10 ml/Thiamine HCl 100 mg/ Folic Acid 1 mg/ Sodium Chloride 1,011.2 mls @ 125 mls/hr IV Q24H [facility] Last Admin: 10/18/16 03:07 Dose: 125 mls/hr Pantoprazole Sodium 30 mg/ (Sodium Chloride) 10 mls @ 300 mls/hr IVPUSH Q24H [facility] Last Admin: 10/17/16 22:25 Dose: 300 mls/hr Ondansetron HCl (Zofran) 4 mg IVPUSH Q8H PRN PRN Reason: Nausea/Vomiting Last Admin: 10/17/16 22:24 Dose: 4 mg Temazepam (Restoril) 15 mg PO BEDTIME PRN PRN Reason: Sleep Discontinued Medications Diphtheria/Tetanus/Acell Pertussis (Adacel) 0.5 ml IM .ONCE ONE Stop: 10/16/16 23:14 Last Admin: 10/17/16 01:30 Dose: 0.5 ml Thiamine HCl 100 mg/ Sodium (Chloride) 51 mls @ 10 mls/min IV ONETIME STA Stop: 10/17/16 03:39 Last Admin: 10/17/16 04:34 Dose: Not Given Pantoprazole Sodium 40 mg/ (Sodium Chloride) 10 mls @ 300 mls/hr IVPUSH Q24H [facility] Last Admin: 10/17/16 04:43 Dose: 300 mls/hr Thiamine HCl 100 mg/ Sodium (Chloride) 51 mls @ 200 mls/hr IV ONETIME STA Stop: 10/17/16 04:38 Last Admin: 10/17/16 04:28 Dose: 200 mls/hr Magnesium Sulfate 4 gm/ Premix 100 mls @ 50 mls/hr IV ONETIME ONE Stop: 10/18/16 09:52 Last Admin: 10/18/16 09:02 Dose: 50 mls/hr Morphine Sulfate (Morphine) Confirm Administered Dose 20 mg .ROUTE .STK-MED ONE Stop: 10/17/16 02:05 Last Admin: 10/17/16 03:58 Dose: Not Given Ondansetron HCl (Zofran Odt) 4 mg PO Q4H PRN PRN Reason: nausea, able to take PO Last Admin: 10/17/16 17:53 Dose: 4 mg Consult PN Assessment/Plan Procedures: Procedures BX BREAST 1ST LESION US IMAG (07/28/15) EMERGENCY DEPT VISIT (08/10/15) (1) Elevated liver enzymes SNOMED Code(s): 461085757, 763204197 Code(s): R74.8 - ABNORMAL LEVELS OF OTHER SERUM ENZYMES (2) Epigastric pain SNOMED Code(s): 77802043 Code(s): R10.13 - EPIGASTRIC PAIN (3) Alcohol abuse SNOMED Code(s): 70988596 Code(s): F10.10 - ALCOHOL ABUSE, UNCOMPLICATED (4) Fall SNOMED Code(s): 0278424, 697384460 Code(s): W19.XXXA - UNSPECIFIED FALL, INITIAL ENCOUNTER Problem List Initiated/Reviewed/Updated: Yes
--- NOTE | 2016-10-18 09:26 | PCM.DCSUM1 ---
Discharge Summary - Hospital Course Free Text/Narrative:: admitted for fall from standing height, because of blood alcohol level of 500, could not do a meaningful neuro exam, pt was admitted for monitoring, and hospitalist consult for management on alcohol withdrawal risks - Discharge Data Discharge Date: 10/18/16 Discharge Disposition: Home, Self-Care 01 Condition: Good - Patient Summary/Data Consults: Consultations 10/17/16 04:31 Consult to Physician [CONS] Routine - Patient Instructions Diet: Full Liquid Diet Diet, Other: fl diet X 2 days Activity: No Strenuous Activities Driving: Do Not Drive Showering/Bathing: May Shower Notify Provider of: Fever, Swelling and Redness, Nausea and/or Vomiting - Discharge Plan Home Medications: Home Meds . [Unable to Verify Home Med List] 10/16/16 [History] Forms: ED Department Discharge Referrals: PCP,None [Primary Care Provider] - - Discharge Summary/Plan Comment DC Time >30 min.: Yes Discharge Summary/Plan Comment: pt was admitted to icu because of blood alcohol level of 500; over the last 2 days, pt doing well, no f/c, fell nausea yesterday, and put on to npo for a short time; now resume po diet; if doing fine w po, and ok with hospitalist, pt would be dc home; pt expressed interest for detox program; fu w id 1 - 2 wks; neuro exam, no deficit. trauma workup ct negative - Patient Data Vitals - Most Recent: Last Vital Signs Temp 98.1 F 10/18/16 04:00 Pulse 70 10/18/16 04:00 Resp 18 10/18/16 04:00 BP 122/66 10/18/16 04:00 Pulse Ox 92 L 10/18/16 04:00 Weight - Most Recent: 173 lb 1.006 oz I&O - Last 24 hours: Intake & Output 10/17/16 10/18/16 10/18/16 22:59 06:59 14:59 Intake Total 607 2493 Output Total 580 860 Balance 27 1633 Lab Results - Last 24 hrs: Laboratory Results - last 24 hr 10/18/16 10/18/16 10/18/16 Range/Units 04:40 04:40 04:40 WBC 3.06 L (4.0-11.0) K/uL RBC 3.68 L (4.50-5.90) M/uL Hgb 11.9 L (13.0-17.0) g/dL Hct 33.5 L (38.0-50.0) % MCV 91.0 (80.0-98.0) fL MCH 32.3 H (27.0-32.0) pg MCHC 35.5 (31.0-37.0) g/dL RDW Std Deviation 41.2 (28.0-62.0) fl RDW Coeff of Mj 13 (11.0-15.0) % Plt Count 40 L (150-400) K/uL MPV 9.50 (7.40-12.00) fL Neut % (Auto) 72.9 (48.0-80.0) % Lymph % (Auto) 14.7 L (16.0-40.0) % [place] % (Auto) 11.4 (0.0-15.0) % Eos % (Auto) 0.7 (0.0-7.0) % Baso % (Auto) 0.3 (0.0-1.5) % Neut # (Auto) 2.2 (1.4-5.7) K/uL Lymph # (Auto) 0.5 L (0.6-2.4) K/uL [place] # (Auto) 0.4 (0.0-0.8) K/uL Eos # (Auto) 0.0 (0.0-0.7) K/uL Baso # (Auto) 0.0 (0.0-0.1) K/uL Nucleated RBC % 0.9 /100WBC Nucleated RBCs # 0 K/uL INR 1.05 (0.86-1.11) Sodium 136 (136-146) mmol/L Potassium 4.1 (3.5-5.1) mmol/L Chloride 103 (98-110) mmol/L Carbon Dioxide 19 L (21-31) mmol/L BUN 14 (6.0-23.0) mg/dL Creatinine 0.7 (0.6-1.5) mg/dL Est Cr Clr Drug Dosing 157.72 mL/min Estimated GFR (MDRD) > 60.0 ml/min Glucose 96 (60-110) mg/dL Calcium 8.6 L (8.8-10.8) mg/dL Magnesium 1.3 L (1.5-2.3) mEq/L Total Bilirubin 1.9 H (0.1-1.5) mg/dL AST 152 H (5-40) IU/L ALT 160 H (8-54) IU/L Alkaline Phosphatase 62 (40-150) Total Protein 6.1 (6.0-8.0) g/dL Albumin 3.9 (3.5-5.0) g/dL Globulin 2.2 (2.0-3.5) g/dL Albumin/Globulin Ratio 1.8 (1.3-2.8) Med Orders - Current: Current Medications Sodium Chloride (Normal Saline) 1,000 mls @ 75 mls/hr IV ASDIRECTED [facility] Last Admin: 10/17/16 15:52 Dose: 75 mls/hr Multivitamins/Minerals 10 ml/Thiamine HCl 100 mg/ Folic Acid 1 mg/ Sodium Chloride 1,011.2 mls @ 125 mls/hr IV Q24H [facility] Last Admin: 10/18/16 03:07 Dose: 125 mls/hr Pantoprazole Sodium 30 mg/ (Sodium Chloride) 10 mls @ 300 mls/hr IVPUSH Q24H [facility] Last Admin: 10/17/16 22:25 Dose: 300 mls/hr Magnesium Sulfate 4 gm/ Premix 100 mls @ 50 mls/hr IV ONETIME ONE Stop: 10/18/16 09:52 Last Admin: 10/18/16 09:02 Dose: 50 mls/hr Ondansetron HCl (Zofran) 4 mg IVPUSH Q8H PRN PRN Reason: Nausea/Vomiting Last Admin: 10/17/16 22:24 Dose: 4 mg Temazepam (Restoril) 15 mg PO BEDTIME PRN PRN Reason: Sleep Discontinued Medications Diphtheria/Tetanus/Acell Pertussis (Adacel) 0.5 ml IM .ONCE ONE Stop: 10/16/16 23:14 Last Admin: 10/17/16 01:30 Dose: 0.5 ml Thiamine HCl 100 mg/ Sodium (Chloride) 51 mls @ 10 mls/min IV ONETIME STA Stop: 10/17/16 03:39 Last Admin: 10/17/16 04:34 Dose: Not Given Pantoprazole Sodium 40 mg/ (Sodium Chloride) 10 mls @ 300 mls/hr IVPUSH Q24H [facility] Last Admin: 10/17/16 04:43 Dose: 300 mls/hr Thiamine HCl 100 mg/ Sodium (Chloride) 51 mls @ 200 mls/hr IV ONETIME STA Stop: 10/17/16 04:38 Last Admin: 10/17/16 04:28 Dose: 200 mls/hr Morphine Sulfate (Morphine) Confirm Administered Dose 20 mg .ROUTE .STK-MED ONE Stop: 10/17/16 02:05 Last Admin: 10/17/16 03:58 Dose: Not Given Ondansetron HCl (Zofran Odt) 4 mg PO Q4H PRN PRN Reason: nausea, able to take PO Last Admin: 10/17/16 17:53 Dose: 4 mg *Q Meaningful Use (DIS) - VTE *Q VTE Criteria *Q: - Stroke *Q Stroke Criteria *Q: - AMI *Q AMI Criteria *Q:
[2016-10-18 09:46] VITALS: BP 135/82
== END 2016-10-18 10:55 | disposition home or self-care (01) ==
LOC: MW.ED 23:01 → MW.ICU 10-17 00:10 → MW.MS 10-17 12:41
PROVIDERS: ADMIT Surgery; ATTEND Surgery
DX: F10.129 Alcohol abuse with intoxication, unspecified (principal); Y90.8 Blood alcohol level of 240 mg/100 ml or more; S00.83XA Contusion of other part of head, initial encounter; W01.0XXA Fall on same level from slipping, tripping and stumbling without subsequent striking against object, initial encounter; S00.81XA Abrasion of other part of head, initial encounter; R74.8 Abnormal levels of other serum enzymes; R10.13 Epigastric pain; Z23 Encounter for immunization
CPT/HCPCS: 36415; 70450; 72125; 76705; 80053; 80305; 81001; 82140; 83735; 84484; 85025; 85027; 85610; 87086; 90471; 90715; 93005; 96360; 96361; 99285; A9270; C9113; G0480; J2405; J3411; J3475; J7040; J7050; 80074; 96365; 96366; 96375; 96376; G0378

== ENCOUNTER 2017-03-16 09:18 | Inpatient (IN) | payer BC ==
[2017-03-16] MEDS ORDERED: Sodium Chloride 0.9% 1,000 ML IV ONE (09:21)
--- NOTE | 2017-03-16 09:22 | EDM.PDOC ---
ED HPI GENERAL MEDICAL PROBLEM - General Stated Complaint: UNK Time Seen by Provider: 03/16/17 09:22 Source of Information: Reports: Patient - History of Present Illness INITIAL COMMENTS - FREE TEXT/NARRATIVE: HISTORY AND PHYSICAL: History of present illness: []A shunt presents via EMS Is a known alcoholic desires stop drinking he has not had a drink in 36 hours his significant other witnessed seizure-like activity, he arrives to the emergency room alert oriented C was score approximately 19 I did provide Valium on arrival no seizure activity while he is here is been generally cooperative No fever nausea vomiting chills sweats no chest pain shortness breath headache dizziness or palpitation no bowel or urine symptoms Review of systems: As per history of present illness and below otherwise all systems reviewed and negative. Past medical history: As per history of present illness and as reviewed below otherwise noncontributory. Surgical history: As per history of present illness and as reviewed below otherwise noncontributory. Social history: No reported history of drug or alcohol abuse. Family history: As per history of present illness and as reviewed below otherwise noncontributory. Physical exam: HEENT: Atraumatic, normocephalic, pupils reactive, negative for conjunctival pallor or scleral icterus, mucous membranes moist, throat clear, neck supple, nontender, trachea midline. Laceration 1 cm occiput Lungs: Clear to auscultation, breath sounds equal bilaterally, chest nontender. Heart: S1S2, regular, negative for clicks, rubs, or JVD. Abdomen: Soft, nondistended, nontender. Negative for masses or hepatosplenomegaly. Negative for costovertebral tenderness. Pelvis: Stable nontender. Genitourinary: Deferred. Rectal: Deferred. Extremities: Atraumatic, negative for cords or calf pain. Neurovascular unremarkable. Neuro: Awake, alert, oriented. Cranial nerves II through XII unremarkable. Cerebellum unremarkable. Motor and sensory unremarkable throughout. Exam nonfocal. Diagnostics: []Lab as below EKG Chest [address] head no contrast Cervical spine no contrast Therapeutics: []1 L normal saline bolus Valium 5 mg IV 2 Banana bag Tetanus status is updated Impression: Alcohol withdrawal []Seizure-like activity Atrial fibrillation Dehydration Laceration 1 cm occiput Laceration right shoulder 48 hours prior, Steri-Stripped bandaging known history of alcohol abuse Definitive disposition and diagnosis as appropriate pending reevaluation and review of above. Head Pain Score (Numeric/FACES): 5 - Related Data Allergies Allergy/AdvReac Type Severity Reaction Status Date / Time No Known Allergies Allergy Verified 03/16/17 09:31 Home Meds: Home Meds . [No Known Home Meds] 03/16/17 [History] Past Medical History - Past Health History Medical/Surgical History: Denies Medical/Surgical History HEENT History: Reports: None Musculoskeletal History: Reports: None Psychiatric History: Reports: Depression. Denies: Dementia, Psych Hospitalization(s), Psychosis, Schizophrenia Oncologic (Cancer) History: Reports: None - Infectious Disease History Infectious Disease History: Reports: Chicken Pox Social & Family History - Family History Family Medical History: Noncontributory - Tobacco Use Smoking Status *Q: Never Smoker Second Hand Smoke Exposure: No - Caffeine Use Caffeine Use: Reports: Energy Drinks Caffeine Use Comment: "once in a while" - Alcohol Use Days Per Week of Alcohol Use: 7 Number of Drinks Per Day: 5 Total Drinks Per Week: 35 - Recreational Drug Use Recreational Drug Use: No ED ROS GENERAL - Review of Systems Review Of Systems: ROS reveals no pertinent complaints other than HPI. ED EXAM, GENERAL - Physical Exam Exam: See Below Course - Vital Signs Last Recorded V/S: Last Vital Signs Temp 97.1 F 03/16/17 09:31 Pulse 115 H 03/16/17 10:29 Resp 14 03/16/17 10:29 BP 159/82 H 03/16/17 10:29 Pulse Ox 96 03/16/17 10:29 - Orders/Labs/Meds Orders: Active Orders 24 hr Category Date Time Status EKG Documentation Completion [RC] STAT Care 03/16/17 09:22 Active DRUG SCREEN, URINE [URCHEM] Stat Lab 03/16/17 09:21 Uncollected MAGNESIUM [CHEM] Stat Lab 03/16/17 09:35 Results TROPONIN I [CHEM] Stat Lab 03/16/17 09:35 Results UA W/MICROSCOPIC [URIN] Stat Lab 03/16/17 09:21 Uncollected MVI, Adult with Vitamin K [Infuvite Adult] 10 ml Med 03/16/17 10:44 Ordered Thiamine [Vitamin B-1] 100 mg Folic Acid 1 mg Sodium Chloride 0.9% [Normal Saline] 1,000 ml IV ONETIME Medication Orders Multivitamins/Minerals 10 ml/Thiamine HCl 100 mg/ Folic Acid 1 mg/ Sodium Chloride 1,011.2 mls @ 999 mls/hr IV ONETIME ONE Stop: 03/16/17 11:44 Labs: Laboratory Tests 03/16/17 03/16/17 03/16/17 Range/Units 09:35 09:35 09:35 WBC 2.99 L (4.0-11.0) K/uL RBC 4.08 L (4.50-5.90) M/uL Hgb 14.3 (13.0-17.0) g/dL Hct 39.7 (38.0-50.0) % MCV 97.3 (80.0-98.0) fL MCH 35.0 H (27.0-32.0) pg MCHC 36.0 (31.0-37.0) g/dL RDW Std Deviation 45.2 (28.0-62.0) fl RDW Coeff of Mj 13 (11.0-15.0) % Plt Count 74 L (150-400) K/uL MPV 9.60 (7.40-12.00) fL Neut % (Auto) 77.6 (48.0-80.0) % Lymph % (Auto) 11.7 L (16.0-40.0) % [place] % (Auto) 9.7 (0.0-15.0) % Eos % (Auto) 0.3 (0.0-7.0) % Baso % (Auto) 0.7 (0.0-1.5) % Neut # (Auto) 2.3 (1.4-5.7) K/uL Lymph # (Auto) 0.4 L (0.6-2.4) K/uL [place] # (Auto) 0.3 (0.0-0.8) K/uL Eos # (Auto) 0.0 (0.0-0.7) K/uL Baso # (Auto) 0.0 (0.0-0.1) K/uL Nucleated RBC % 0.0 /100WBC Nucleated RBCs # 0 K/uL Sodium 134 L (136-146) mmol/L Potassium 3.5 (3.5-5.1) mmol/L Chloride 96 L (98-110) mmol/L Carbon Dioxide 16 L (21-31) mmol/L BUN 15 (6.0-23.0) mg/dL Creatinine 0.9 (0.6-1.5) mg/dL Est Cr Clr Drug Dosing TNP Estimated GFR (MDRD) > 60.0 ml/min Glucose 140 H (60-110) mg/dL Calcium 8.5 L (8.8-10.8) mg/dL Magnesium 1.4 L (1.5-2.3) mEq/L Total Bilirubin 1.8 H (0.1-1.5) mg/dL AST 426 H (5-40) IU/L ALT 210 H (8-54) IU/L Alkaline Phosphatase 135 (40-150) Creatine Kinase 215 (9-236) IU/L CK-MB (CK-2) 2.3 (0-6.6) ng/ml Total Protein 8.1 H (6.0-8.0) g/dL Albumin 4.7 (3.5-5.0) g/dL Globulin 3.4 (2.0-3.5) g/dL Albumin/Globulin Ratio 1.4 (1.3-2.8) Prolactin 36 H (1-23) ng/mL Ethyl Alcohol < 10.0 mg/dL Meds: Medications Generic Name Dose Route Start Last Admin Trade Name Lenq PRN Reason Stop Dose Admin Multivitamins/Minerals 10 ml/ 1,011.2 mls @ 999 mls/hr 03/16/17 10:44 Thiamine HCl 100 mg/ Folic IV 03/16/17 11:44 Acid 1 mg/ Sodium Chloride ONETIME ONE Discontinued Medications Generic Name Dose Route Start Last Admin Trade Name Alaina PRN Reason Stop Dose Admin Diazepam 5 mg 03/16/17 09:21 03/16/17 09:29 Valium IVPUSH 03/16/17 09:22 5 mg ONETIME ONE Administration Diazepam 5 mg 03/16/17 10:45 Valium IVPUSH 03/16/17 10:46 ONETIME ONE Sodium Chloride 1,000 mls @ 999 mls/hr 03/16/17 09:21 03/16/17 09:29 Normal Saline IV 03/16/17 10:21 999 mls/hr STAT ONE Administration Departure - Departure Time of Disposition: 10:50 Disposition: Admitted As Inpatient 68 Condition: Poor Clinical Impression: Alcohol withdrawal syndrome, Atrial fibrillation, Seizure-like activity, Laceration - Discharge Information - My Orders Last 24 Hours: My Active Orders 03/16/17 09:21 DRUG SCREEN, URINE [URCHEM] Stat UA W/MICROSCOPIC [URIN] Stat 03/16/17 09:22 EKG Documentation Completion [RC] STAT 03/16/17 09:35 MAGNESIUM [CHEM] Stat TROPONIN I [CHEM] Stat 03/16/17 10:44 MVI, Adult with Vitamin K [Infuvite Adult] 10 ml Thiamine [Vitamin B-1] 100 mg Folic Acid 1 mg Sodium Chloride 0.9% [Normal Saline] 1,000 ml IV ONETIME - Assessment/Plan Last 24 Hours: My Active Orders 03/16/17 09:21 DRUG SCREEN, URINE [URCHEM] Stat UA W/MICROSCOPIC [URIN] Stat 03/16/17 09:22 EKG Documentation Completion [RC] STAT 03/16/17 09:35 MAGNESIUM [CHEM] Stat TROPONIN I [CHEM] Stat 03/16/17 10:44 MVI, Adult with Vitamin K [Infuvite Adult] 10 ml Thiamine [Vitamin B-1] 100 mg Folic Acid 1 mg Sodium Chloride 0.9% [Normal Saline] 1,000 ml IV ONETIME
[2017-03-16 10:11] LABS: CHLORIDE,CL 96 mmol/L (98-110); SODIUM,NA 134 mmol/L (136-146)
--- NOTE | 2017-03-16 10:31 | CR ---
EXAMINATION: Portable chest radiograph. HISTORY: Shortness of breath. FINDINGS: The trachea is midline. The cardiomediastinal silhouette is within normal limits. No pulmonary infilt rates, effusions or pneumothorax. Osseous structures appear unremarkable. IMPRESSION: No acute cardiopulmonary process.
--- NOTE | 2017-03-16 10:34 | CT ---
EXAMINATION: Non contrast CT head. Coronal and sagittal reformats. HISTORY: Pain FINDINGS: No evidence of intra or extra axial hemorrhage, mass, midline shift, hydrocephalus or edema. No hypoattenuation changes in the major vascular territories to suggest acute infarct. No abnormal intracranial calcifications are detected. No evidence of substantial vascular calcificat ions. Paranasal sinuses and mastoid air cells are well aerated without substantial findings. The orbits an d globes are symmetric. Pituitary fossa appears unremarkable. Calvarium is intact. No evidence of skull fracture. IMPRESSION: No acute intracranial findings.
--- NOTE | 2017-03-16 10:36 | CT ---
EXAMINATION: CT cervical spine HISTORY: Pain COMPARISON: None TECHNIQUE: Axial CT images obtained through the cervical spine without contrast. Coronal and sagittal reconstructions obtained. FINDINGS: The cervical spinal alignment is normal. The vertebral body heights and disc spaces appear well-maintained. There is no fracture or dislocation. Bone mineralization is normal. The paravertebra l soft tissues are normal. No bulky cervical lymphadenopathy. The lung apices are clear. IMPRESSION: No acute osseous abnormalities identified.
[2017-03-16] MEDS ORDERED: MVI, Adult with Vitamin K 10 ML, Thiamine 100 MG, Folic Acid 1 MG in Sodium Chloride 0.... IV ONE ×4 (10:44)
[2017-03-16] MEDS ORDERED: Sodium Chloride 0.9% 2.5 ML Syringe FLUSH PRN (11:19)
[2017-03-16] MEDS ORDERED: Sodium Chloride 0.9% 10 ML Syringe FLUSH PRN (11:19)
[2017-03-16] MEDS ORDERED: Magnesium Sulfate/Water 4 GM in Premix Bag 1 BAG IV ONE (11:27)
[2017-03-16] MEDS ORDERED: Ondansetron 4 MG/2 ML SDV IVPUSH SCH (11:30)
[2017-03-16] MEDS ORDERED: Heparin Sodium 5,000 Units/ML Vial SUBCUT SCH (11:30)
[2017-03-16] MEDS ORDERED: Diazepam 5 MG Tab PO ONE (11:35)
[2017-03-16] MEDS: Sodium Chloride 0.45% 1,000 ML IV SCH ×2 (12:15→20:07)
[2017-03-16] MEDS ORDERED: guaiFENesin 100 MG/5 ML Soln 10 ML UD Cup PO PRN (12:28)
[2017-03-16] MEDS ORDERED: Levofloxacin/Dextrose 5%-Water 750 MG in Premix Bag 1 BAG IV SCH ×2 (12:30→15:00)
[2017-03-16] MEDS: LORazepam 2 MG/ML SDV IVPUSH PRN ×3 (12:42→20:03)
[2017-03-16] MEDS: Phosphorus #1 250 MG Tab PO SCH ×2 (12:42→17:02)
[2017-03-16] MEDS ORDERED: Ondansetron 4 MG/2 ML SDV IVPUSH PRN (14:48)
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
[2017-03-16 19:55] LABS: CHLORIDE,CL 101 mmol/L (98-110); SODIUM,NA 132 mmol/L (136-146)
[2017-03-17] MEDS: Phosphorus #1 250 MG Tab PO SCH ×2 (00:15→06:19)
[2017-03-17] MEDS: LORazepam 2 MG/ML SDV IVPUSH PRN ×4 (00:16→09:05)
[2017-03-17] MEDS: Sodium Chloride 0.45% 1,000 ML IV SCH (04:14)
[2017-03-17 06:30] LABS: CHLORIDE,CL 104 mmol/L (98-110); SODIUM,NA 133 mmol/L (136-146)
[2017-03-17] MEDS ORDERED: Magnesium Sulfate/Water 4 GM in Premix Bag 1 BAG IV ONE (08:31)
[2017-03-17] MEDS ORDERED: Potassium Chloride 20 MEQ Tab.ER PO ONE (08:32)
[2017-03-17 09:47] VITALS: BP 148/92
--- NOTE | 2017-03-17 20:14 | PCM.PN ---
- General Info Date of Service: 03/17/17 Admission Dx/Problem (Free Text): alcohol withdrawal, head trauma , seizure d/o - Review of Systems HEENT: Reports: Other (head trauma) Pulmonary: Reports: No Symptoms Cardiovascular: Reports: No Symptoms Gastrointestinal: Reports: No Symptoms Genitourinary: Reports: No Symptoms Musculoskeletal: Reports: No Symptoms Skin: Reports: Bruising Neurological: Reports: Seizure Psychiatric: Reports: Agitation, Hallucinations - Patient Data Vitals - Most Recent: Last Vital Signs Temp 98.4 F 03/17/17 08:00 Pulse 108 H 03/16/17 11:48 Resp 22 H 03/17/17 09:00 BP 148/92 H 03/17/17 09:00 Pulse Ox 97 03/17/17 09:00 Weight - Most Recent: 196 lb 6.91 oz I&O - Last 24 Hours: Intake & Output 03/17/17 03/17/17 03/17/17 06:59 14:59 22:59 Intake Total 2388 Output Total 2900 Balance -512 Lab Results Last 24 Hours: Laboratory Results - last 24 hr 03/16/17 03/17/17 03/17/17 Range/Units 19:30 05:33 05:33 WBC 3.02 L (4.0-11.0) K/uL RBC 3.67 L (4.50-5.90) M/uL Hgb 12.7 L (13.0-17.0) g/dL Hct 36.1 L (38.0-50.0) % MCV 98.4 H (80.0-98.0) fL MCH 34.6 H (27.0-32.0) pg MCHC 35.2 (31.0-37.0) g/dL RDW Std Deviation 45.8 (28.0-62.0) fl RDW Coeff of Mj 13 (11.0-15.0) % Plt Count 76 L (150-400) K/uL MPV 9.80 (7.40-12.00) fL Nucleated RBC % 0.0 /100WBC Nucleated RBCs # 0 K/uL INR (0.86-1.11) Sodium 132 L 133 L (136-146) mmol/L Potassium 3.8 3.5 (3.5-5.1) mmol/L Chloride 101 104 (98-110) mmol/L Carbon Dioxide 21 20 L (21-31) mmol/L BUN 14 11 (6.0-23.0) mg/dL Creatinine 0.7 0.7 (0.6-1.5) mg/dL Est Cr Clr Drug Dosing 153.53 153.53 mL/min Estimated GFR (MDRD) > 60.0 > 60.0 ml/min Glucose 97 89 (60-110) mg/dL Calcium 7.9 L 7.9 L (8.8-10.8) mg/dL Phosphorus 2.5 2.1 L (2.4-4.7) mg/dL Magnesium 2.0 1.8 (1.5-2.3) mEq/L Total Bilirubin 1.8 H (0.1-1.5) mg/dL AST 261 H (5-40) IU/L ALT 147 H (8-54) IU/L Alkaline Phosphatase 106 (40-150) Total Protein 7.0 (6.0-8.0) g/dL Albumin 4.2 (3.5-5.0) g/dL Globulin 2.8 (2.0-3.5) g/dL Albumin/Globulin Ratio 1.5 (1.3-2.8) 03/17/17 Range/Units 05:33 WBC (4.0-11.0) K/uL RBC (4.50-5.90) M/uL Hgb (13.0-17.0) g/dL Hct (38.0-50.0) % MCV (80.0-98.0) fL MCH (27.0-32.0) pg MCHC (31.0-37.0) g/dL RDW Std Deviation (28.0-62.0) fl RDW Coeff of Mj (11.0-15.0) % Plt Count (150-400) K/uL MPV (7.40-12.00) fL Nucleated RBC % /100WBC Nucleated RBCs # K/uL INR 1.02 (0.86-1.11) Sodium (136-146) mmol/L Potassium (3.5-5.1) mmol/L Chloride (98-110) mmol/L Carbon Dioxide (21-31) mmol/L BUN (6.0-23.0) mg/dL Creatinine (0.6-1.5) mg/dL Est Cr Clr Drug Dosing mL/min Estimated GFR (MDRD) ml/min Glucose (60-110) mg/dL Calcium (8.8-10.8) mg/dL Phosphorus (2.4-4.7) mg/dL Magnesium (1.5-2.3) mEq/L Total Bilirubin (0.1-1.5) mg/dL AST (5-40) IU/L ALT (8-54) IU/L Alkaline Phosphatase (40-150) Total Protein (6.0-8.0) g/dL Albumin (3.5-5.0) g/dL Globulin (2.0-3.5) g/dL Albumin/Globulin Ratio (1.3-2.8) Med Orders - Current: Current Medications Discontinued Medications Diazepam (Valium) 5 mg IVPUSH ONETIME ONE Stop: 03/16/17 09:22 Last Admin: 03/16/17 09:29 Dose: 5 mg Diazepam (Valium) 5 mg IVPUSH ONETIME ONE Stop: 03/16/17 10:46 Last Admin: 03/16/17 11:44 Dose: Not Given Diazepam (Valium.) 5 mg PO ONETIME ONE Stop: 03/16/17 11:36 Last Admin: 03/16/17 12:25 Dose: Not Given Diazepam (Valium) 5 mg IVPUSH ONETIME ONE Stop: 03/16/17 11:44 Last Admin: 03/16/17 11:44 Dose: 5 mg Guaifenesin (Robitussin) 200 mg PO QID PRN PRN Reason: Cough Heparin Sodium (Porcine) (Heparin Sodium) 5,000 units SUBCUT Q8H [facility] Last Admin: 03/16/17 12:26 Dose: Not Given Sodium Chloride (Normal Saline) 1,000 mls @ 999 mls/hr IV STAT ONE Stop: 03/16/17 10:21 Last Admin: 03/16/17 09:29 Dose: 999 mls/hr Multivitamins/Minerals 10 ml/Thiamine HCl 100 mg/ Folic Acid 1 mg/ Sodium Chloride 1,011.2 mls @ 999 mls/hr IV ONETIME ONE Stop: 03/16/17 11:44 Last Admin: 03/16/17 11:12 Dose: 999 mls/hr Sodium Chloride (Sodium Chloride 0.45%) 1,000 mls @ 125 mls/hr IV ASDIRECTED [facility] Last Infusion: 03/17/17 07:45 Dose: 0 mls/hr Magnesium Sulfate 4 gm/ Premix 100 mls @ 50 mls/hr IV ONETIME ONE Stop: 03/16/17 13:26 Last Admin: 03/16/17 12:22 Dose: 50 mls/hr Levofloxacin/Dextrose 750 mg/ (Premix) 150 mls @ 100 mls/hr IV Q24H [facility] Last Admin: 03/16/17 13:52 Dose: Not Given Levofloxacin/Dextrose 750 mg/ (Premix) 150 mls @ 100 mls/hr IV Q24H [facility] Last Admin: 03/16/17 14:44 Dose: 100 mls/hr Lorazepam (Ativan) 0 mg IVPUSH Q4H PRN; Protocol PRN Reason: agitation, seizure Last Admin: 03/17/17 09:05 Dose: 2 mg Ondansetron HCl (Zofran) 4 mg IVPUSH Q4H [facility] Last Admin: 03/16/17 12:25 Dose: 4 mg Ondansetron HCl (Zofran) 4 mg IVPUSH Q4H PRN PRN Reason: Nausea/Vomiting Potassium Chloride (Klor-Con M20) 40 meq PO ONETIME ONE Stop: 03/17/17 08:33 Last Admin: 03/17/17 09:03 Dose: 40 meq Sodium Chloride (Saline Flush) 10 ml FLUSH ASDIRECTED PRN PRN Reason: Keep Vein Open Sodium Chloride (Saline Flush) 2.5 ml FLUSH ASDIRECTED PRN PRN Reason: Keep Vein Open Sodium Phosphate (Neutra-Phos) 250 mg PO QID [facility] Last Admin: 03/17/17 06:19 Dose: 250 mg - Exam General: Alert, Oriented HEENT: Pupils Equal Neck: Supple Lungs: Clear to Auscultation Cardiovascular: Regular Rate GI/Abdominal Exam: Normal Bowel Sounds, Soft, Non-Tender, No Organomegaly Back Exam: Normal Inspection Extremities: Normal Inspection Skin: Warm, Dry Neurological: No New Focal Deficit Psy/Mental Status: Alert, Anxious, Agitated - Problem List & Annotations (1) Alcohol withdrawal syndrome SNOMED Code(s): 744434125 Code(s): F10.239 - ALCOHOL DEPENDENCE WITH WITHDRAWAL, UNSPECIFIED Status: Acute (2) Laceration SNOMED Code(s): 340315860 Code(s): BGA7615 - Status: Acute (3) Seizure-like activity SNOMED Code(s): 665067078 Code(s): R56.9 - UNSPECIFIED CONVULSIONS Status: Acute (4) Alcohol abuse SNOMED Code(s): 28437217 Code(s): F10.10 - ALCOHOL ABUSE, UNCOMPLICATED Status: Acute (5) Head trauma SNOMED Code(s): 16661220 Code(s): S09.90XA - UNSPECIFIED INJURY OF HEAD, INITIAL ENCOUNTER Status: Acute (6) Atrial fibrillation SNOMED Code(s): 54016394 Code(s): I48.91 - UNSPECIFIED ATRIAL FIBRILLATION Status: Acute - Problem List Review Problem List Initiated/Reviewed/Updated: Yes - My Orders Last 24 Hours: My Active Orders 03/16/17 20:51 Abdomen Ltd [US] Routine - Plan Plan:: a/p head trauma Multiple falls Alcoholism acute alcoholic hepatitis- improved alcohol withdrawal , seizure d/o, CIWA score 15 today a fib rate paroxysmal, converted to sinus now gait disturbances plan patient admitted to ICU did not wanted to stay anymore , he was explained he needs to stay and he is at risk of if he does not get treated, patient left AMA . He said he will take his who also drinks heavily and needs detox and will go together to [place] to Detox because she wants to be admitted there , where they have a special detox unit.
== END 2017-03-17 09:48 | disposition left against medical advice (07) | DRG 770 ==
LOC: MW.ED 09:18 → MW.ICU 10:52
PROVIDERS: ADMIT Internal Medicine; ATTEND Internal Medicine
DX: F10.239 Alcohol dependence with withdrawal, unspecified (principal); R56.9 Unspecified convulsions; S01.91XA Laceration without foreign body of unspecified part of head, initial encounter; F10.10 Alcohol abuse, uncomplicated; W18.30XA Fall on same level, unspecified, initial encounter; Y92.019 Unspecified place in single-family (private) house as the place of occurrence of the external cause; I48.91 Unspecified atrial fibrillation; K70.10 Alcoholic hepatitis without ascites; R29.6 Repeated falls
CPT/HCPCS: 36415; 70450; 70450-26; 71010; 71010-26; 72125; 72125-26; 80048; 80053; 80305; 81001; 82550; 82553; 83735; 84100; 84146; 84484; 85025; 85027; 85610; 93005; 96361; 96365; 96375; 96376; 99283; 99285-25; A9270-GY; G0480; J1956; J2060; J2405; J3360; J3411; J3475; J7030; J7040

== ENCOUNTER 2020-07-31 16:32 | Emergency (ER) | payer BC ==
[2020-07-31] MEDS ORDERED: Cyclobenzaprine 10 MG Tab PO ONE (17:20)
[2020-07-31] MEDS ORDERED: Dexamethasone 10 MG/ML SDV IM STA (17:20)
[2020-07-31] MEDS ORDERED: Ketorolac 30 MG/ML SDV IM STA (17:20)
[2020-07-31] MEDS ORDERED: Acetaminophen/oxyCODONE 325-5 MG Tab PO ONE (17:20)
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
[2020-07-31 18:03] VITALS: BP 128/86; PULSE 110
== END 2020-07-31 18:00 | disposition home or self-care (01) ==
LOC: MW.ED 16:32
DX: M54.41 Lumbago with sciatica, right side (principal)
CPT/HCPCS: 96372; 99283; A9270; J1100; J1885

== ENCOUNTER 2021-11-27 12:12 | Emergency (ER) | payer BC ==
[2021-11-27] MEDS ORDERED: Sodium Chloride 0.9% 1,000 ML IV ONE (12:19)
[2021-11-27 12:32] VITALS: PULSE 67
[2021-11-27 12:42] VITALS: BP 148/84
[2021-11-27 13:16] LABS: CARBON DIOXIDE,CO2 24.8 mmol/L (21.0-32.0); POTASSIUM,K 4.1 mmol/L (3.5-5.1)
== END 2021-11-27 14:45 | disposition home or self-care (01) ==
LOC: MW.ED 12:12
DX: F10.120 Alcohol abuse with intoxication, uncomplicated (principal); Y90.8 Blood alcohol level of 240 mg/100 ml or more
CPT/HCPCS: 36415; 71045; 72170; 80053; 80307; 83735; 85025; 96360; 99285; J7030